=== PATIENT | male | born 1995 | race Caucasian/White ===

== ENCOUNTER 2017-11-07 07:49 | Emergency (ER) | payer OTHER ==
[~2017-11-07] VITALS: Ht 167.6 cm; Wt 66.7 kg
--- NOTE | 2017-11-07 07:49 | NUR ---
Patient to ER [facility] to [facility] for evaluation. Side rails up. Assumed care of patient.
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
[2017-11-07 08:08] VITALS: BP_SYST 125
--- NOTE | 2017-11-07 08:18 | NUR ---
ER Dr. Salazar at bedside examining patient.
--- NOTE | 2017-11-07 08:48 | NUR ---
TAISHA Henriquez given written discharge instructions on behalf of the patient. ER MD discussed with patient the results and treatment provided. Patient in stable condition. ID arm band removed. Patient advised to follow up with PMD. Pain Scale 0/10. Opportunity for questions provided and answered. Patient transported to [facility] via squad car.
== END 2017-11-07 08:50 ==
LOC: SED 07:49
DX: S60.212A Contusion of left wrist, initial encounter (principal); F10.129 Alcohol abuse with intoxication, unspecified; F17.200 Nicotine dependence, unspecified, uncomplicated; X58.XXXA Exposure to other specified factors, initial encounter; Y93.89 Activity, other specified; Y92.89 Other specified places as the place of occurrence of the external cause; Y99.8 Other external cause status
CPT/HCPCS: 99283